=== PATIENT | female | born 1980 | race Caucasian/White ===

== ENCOUNTER 2023-10-16 10:58 | Inpatient (IN) | payer OTHER ==
[~2023-10-16] VITALS: Ht 162.6 cm; Wt 108.9 kg
[2023-10-16] MEDS ORDERED: CEFAZOLIN 2 GM IVPB PREMIX 50 ML IV ONE (13:00)
[2023-10-16 13:26] VITALS: BP_SYST 157; PULSE 91; RESP 20; TEMP 98.6; O2SAT 99
== END 2023-10-16 13:20 | disposition home or self-care (01) | DRG 761 ==
LOC: SMU 10:58
PROVIDERS: ADMIT Specialist; ATTEND Obstetrics & Gynecology
DX: N92.0 Excessive and frequent menstruation with regular cycle (principal); D25.9 Leiomyoma of uterus, unspecified; Z30.02 Counseling and instruction in natural family planning to avoid pregnancy; Z53.8 Procedure and treatment not carried out for other reasons
CPT/HCPCS: 36415; 71046; 86886; 86900; 86901; 87081; 93005; J0690